=== PATIENT | male | born 1940 | race Caucasian/White ===

== ENCOUNTER 2025-09-16 09:53 | Emergency (ER) | payer OTHER ==
[2025-09-16 11:33] LABS: Absolute Lymphocytes (CBC) 1.4 K/uL (0.7-4.9); Hematocrit 33.2 % (39.6-49.0); Hemoglobin 11.2 g/dL (13.6-17.9); MCH 27.0 pg (27.0-35.0); MCHC 33.6 g/dL (32.0-36.0); MCV 80.2 fL (80-100); MPV 9.7 fL (7.6-11.3); Nucleated RBC Absolute Count 0.0 (0-0); Nucleated Red Blood Cells % 0.0 % (0-0); RBC Red Blood Cell Count 4.15 M/uL (4.33-5.43); White Blood Count 9.50 thou/uL (4.3-10.9)
[2025-09-16 11:52] LABS: ALT/SGPT 248.0 U/L (16-61); AST/SGOT 87.0 U/L (15-37); Albumin 3.2 g/dL (3.4-5.0); Albumin/Globulin Ratio 0.9 (1.1-1.8); Alkaline Phosphatase 141.0 U/L (45-117); Anion Gap 10.4 mEq/L (5.0-15.0); BUN Blood Urea Nitrogen 16.0 mg/dL (7-18); Globulin 3.4 g/dL (2.3-3.5); Glucose Level 120.0 mg/dL (74-106); Potassium 3.4 mEq/L (3.5-5.1); Troponin High Sensitivity 20.3 pg/mL (<58.9)
[2025-09-16 12:17] LABS: Influenza A Ag Negative
[2025-09-16 12:18] LABS: PT Prothrombin Time 20.6 SECONDS (10-13.0); PTT, Activated Partial Thromb 37.8 SECONDS (27.2-37.4); Protime INR 1.86
[2025-09-16 12:18] LABS: Influenza B Ag Negative; SARS-CoV-2 Antigen Rapid Res Negative (Negative)
--- NOTE | 2025-09-16 12:29 | RAD REPORT ---
EXAM: Chest Abdomen Pelvis W Cont CLINICAL INDICATION: Male, 84 years wknes, vomiting;Fever TECHNIQUE: CT chest, abdomen and pelvis was performed, with IV contrast, as per department protocol. Axial, sagittal and coronal reconstructions were obtained. One or more of the following dose reduction techniques were used: Automated exposure control, adjustment of the mA and/or kV according to the patient size, and/or iterative reconstruction. Unless otherwise specified, incidental findings do not require dedicated imaging follow-up. [id number]. COMPARISON: No prior exams FINDINGS: ---THORAX--- LOWER NECK AND CHEST WALL: Visualized thyroid gland and soft tissues are normal. MEDIASTINUM AND LYMPH NODES: No mediastinal mass or fluid collection. Normal size mediastinal, hilar, and axillary lymph nodes. Diffuse esophageal wall thickening. THORACIC AORTA: No thoracic aortic aneurysm. PULMONARY ARTERIES: Enlarged main pulmonary arteries could indicate pulmonary artery hypertension. Un able to evaluate for pulmonary emboli due to either protocol or lack of contrast. HEART: Mild cardiomegaly. Moderate coronary artery calcifications. No significant pericardial effusio n. LUNGS AND AIRWAYS: Small areas of subpleural consolidation in the left lung base. This may reflect at electasis or pneumonitis. No definite pneumonia. Motion artifact limits evaluation for pulmonary nodule detection. PLEURA: Small left pleural effusion. No pneumothorax. ---ABDOMEN/PELVIS--- UPPER GI: No significant abnormality. LIVER: Steatosis and probable cirrhosis. Subcentimeter low-density liver lesions noted which are too small to characterize. GALLBLADDER/BILE DUCTS: Dilated gallbladder with pericholecystic edema? PANCREAS: Atrophy but no acute findings. SPLEEN: Moderate splenomegaly. ADRENALS: No adrenal masses. KIDNEYS AND URETERS: No hydronephrosis.No suspicious renal mass.No renal calculi. 5 mm stone in the l eft distal ureter which is nonobstructing. ABDOMINAL AORTA AND OTHER VESSELS: Moderate atherosclerotic changes without aortic aneurysm. PERITONEUM: No abnormal free fluid. No free air. LYMPH NODES: No pathologic lymphadenopathy. ABDOMINAL WALL: Unremarkable SMALL BOWEL/COLON: Small bowel has normal course and caliber. No colonic wall thickening or pericolon ic inflammatory changes. Appendix absent. Moderate diverticulosis without diverticulitis. URINARY BLADDER: Underdistended but grossly unremarkable. REPRODUCTIVE ORGANS: Prostate brachytherapy seeds. ---COMBINED--- MUSCULOSKELETAL: No acute or suspicious osseous abnormality. Right shoulder arthroplasty. ADDITIONAL FINDINGS: None. IMPRESSION: Distended gallbladder with pericholecystic edema could reflect acute cholecystitis in the appropriate clinical setting. Alternatively, it could be related to underlying liver disease. Hepatic steatosis and probable cirrhosis. Splenomegaly suggesting component of portal hypertension. Mild subpleural airspace disease in the left lower lobe probably atelectasis and/or pneumonitis with trace left effusion. No definite pneumonia.
--- NOTE | 2025-09-16 13:32 | RAD REPORT ---
Abdomen Exam Limited: 09/16/2025 1:11 PM CLINICAL HISTORY: ABD PAIN STUDY: Limited right upper quadrant ultrasound of abdomen. COMPARISON: Same day CT FINDINGS: Liver: Limited evaluation. Hepatic steatosis noted. Bile ducts: No intrahepatic or extrahepatic biliary ductal dilatation. Common bile duct measures 2 mm. Gallbladder: Gallbladder is thickened with wall measuring 6 mm. A combination of small stones and slu dge noted. No sonographic Domínguez sign. IMPRESSION: Gallstones with gallbladder wall thickening but negative sonographic Domínguez sign. This is equivocal f or acute cholecystitis. If persistent clinical concern, could consider HIDA scan to confirm cystic duct patency.
--- NOTE | 2025-09-16 16:35 | RAD REPORT ---
EXAMINATION: MR CHOLANGIOGRAM CLINICAL INDICATION: Abdominal pain TECHNIQUE: Magnetic resonance cholangiopancreatogram was performed. 3D MIP reconstruction done. COMPARISON: September 16, 2025 CT and ultrasound FINDINGS: Gallbladder wall thickened. Filling defects within the posterior aspect of the gallbladder representing a combination of sludge a nd small gallstones. Biliary tree normal caliber. A filling defect within the common bile duct not seen. Pancreatic duct unremarkable. IMPRESSION: Cholelithiasis and gallbladder sludge Gallbladder wall thickening may indicate cholecystitis
--- NOTE | 2025-09-16 16:49 | EDPHYS ---
Physician Documentation [facility] Name: Sherman Arroyo Age: 84 yrs Sex: Male : 1940 Arrival Date: 09/16/2025 Time: 09:53 Bed 14 Private MD: ED Physician Gregory Lai HPI: 09/16 10:58 This 84 yrs old Male presents to ER via Ambulatory with complaints of Flu Symptoms. sb4 10:58 Patient reports fever x 4 days as well as intermittent nausea and vomiting. States that sb4 they had an IV company come to the house and give him fluids 2 days ago and he was feeling better, but his fever has persisted and he has been feeling generally weak. No cough, congestion, abdominal pain. Has had a few had a few episodes of diarrhea. No sick contacts. Historical: - Allergies: 10:04 No Known Allergies; bp - Home Meds: 10:04 Eliquis oral [Active]; losartan oral [Active]; Hydrochlorothiazide Oral [Active]; bp Allopurinol Oral [Active]; Lasix Oral [Active]; Amiodarone Oral [Active]; Colchicine Oral [Active]; - PMHx: 10:04 Hypertensive disorder; Congestive heart failure; bp - Immunization history:: Adult Immunizations up to date. - Infectious Disease History:: Denies. - Social history:: Smoking status: Patient denies any tobacco usage or history of. ROS: 10:58 Cardiovascular: Negative for chest pain, palpitations, and edema, sb4 10:58 Constitutional: Positive for fever, malaise, 10:58 Abdomen/GI: Positive for nausea and vomiting, 10:58 All other systems are negative, Exam: 11:00 Head/Face: Normocephalic, atraumatic. Eyes: Extra-ocular motions intact. Periorbital sb4 areas with no swelling, redness, or edema. Cardiovascular: Regular rate and rhythm with a normal S1 and S2. Respiratory: No increased work of breathing, no retractions or nasal flaring. Abdomen/GI: Soft, non-tender, no distension. Skin: Warm, dry with normal turgor. Normal color with no rashes, no lesions, and no evidence of cellulitis. 11:00 Constitutional: The patient appears alert, awake, uncomfortable, 11:00 ENT: Mouth: Oral mucosa: dry, Vital Signs: 10:13 BP 142 / 63; Pulse 75; Resp 16; Temp 98.7; Pulse Ox 97% ; bp 11:39 BP 134 / 61; Pulse 67; Resp 14; Pulse Ox 97% on R/A; cc6 12:49 BP 130 / 56; Pulse 70; Resp 16; Pulse Ox 97% on R/A; cc6 13:53 BP 147 / 72; Pulse 69; Resp 21; Pulse Ox 98% on R/A; cc6 19:18 BP 136 / 64; Pulse 74; Resp 16; Pulse Ox 98% ; Pain 0/10; kt5 20:23 BP 148 / 67; Pulse 73; Resp 16; Pulse Ox 95% ; Pain 0/10; kt5 21:13 BP 143 / 62; Pulse 76; Resp 18; Temp 98.6; Pulse Ox 99% ; Pain 4/10; kt5 19:18 Pain Scale: Adult kt5 20:23 Pain Scale: Adult kt5 21:13 Pain Scale: Adult kt5 MDM: 09:56 Medical Screening Exam initiated sb4 11:00 Differential diagnosis: viral Infection, bacterial infection, URI, bronchitis, sb4 pneumonia UTI, gastroenteritis. 14:23 Data reviewed: vital signs, nurses notes, lab test result(s), EKG, radiologic studies. sb4 Care significantly affected by the following chronic conditions: Diabetes, Congestive Heart Failure, Obesity, Liver Disease. 16:53 Counseling: I had a detailed discussion with the patient and/or guardian regarding the sb4 historical points, exam findings, and any diagnostic results supporting the discharge/admit diagnosis, the presence of at least one elevated blood pressure reading (>120/80) during this emergency department visit, lab results, radiology results, the need for further work-up and treatment in the hospital. ED course: Patient is requesting transfer to [facility] because that is where his medical team is. I did inform patient that I can attempt transfer but cannot guarantee as we do have the capabilities to take care of of him at this facility. 16:54 Historians other than the Patient: Spouse/Significant Other: . Daughter/Son: son. sb4 19:01 Management of patient was discussed with the following: Hospitalist: Dr. Agrawal, 4 hospitalist at [facility], accepts patient for transfer. Aquarist: General surgeon at [facility], agrees to consult. 09/16 10:24 Order name: Blood Culture Adult (2) sb4 09/16 10:24 Order name: CBC with Diff; Complete Time: 11:34 sb4 09/16 10:24 Order name: CMP; Complete Time: 11:53 sb4 09/16 10:24 Order name: Lactate w/ 2H reflex if indic.; Complete Time: 11:53 sb4 09/16 10:24 Order name: Protime (+inr); Complete Time: 12:18 sb4 09/16 10:24 Order name: Ptt, Activated; Complete Time: 12:18 sb4 09/16 10:24 Order name: Troponin HS; Complete Time: 11:53 sb4 09/16 11:10 Order name: COVID-19 Ag + Flu A+B Ag; Complete Time: 12:18 sb4 09/16 10:24 Order name: CT Chest, Abdomen, Pelvis - W/Contrast; Complete Time: 12:30 sb4 09/16 12:32 Order name: Abdomen Limited US; Complete Time: 13:39 sb4 09/16 14:11 Order name: Cholangiogram; Complete Time: 16:36 EDMS 09/16 10:24 Order name: Accucheck; Complete Time: 12:02 sb4 09/16 10:24 Order name: Cardiac monitoring; Complete Time: 11:18 sb4 09/16 10:24 Order name: EKG - Nurse/Tech; Complete Time: 11:18 sb4 09/16 10:24 Order name: IV Saline Lock - Large Bore; Complete Time: 10:58 sb4 09/16 10:24 Order name: Labs collected and sent; Complete Time: 10:58 sb4 09/16 10:24 Order name: O2 Per Protocol; Complete Time: 10:58 sb4 09/16 10:24 Order name: O2 Sat Monitoring; Complete Time: 10:58 sb4 09/16 10:24 Order name: Vital Signs; Complete Time: 11:18 sb4 EC:16 Rate is 70 beats/min. Rhythm is regular, Sinus Rhythm. AL interval is normal at 193 sb4 msec. QRS interval is normal at 94 msec. QT interval is normal at 406 msec. Clinical impression: NSR w/ Non-specific ST/T Changes. Interpreted by me. Reviewed by me. Administered Medications: 19:17 Drug: Piperacillin-Tazobactam IVPB 3.375 grams IVPB once over 60 mins; (mix in NS 100 kt5 mL) Route: IVPB; Infused Over: 60 mins; Site: right antecubital; 20:39 Follow up: Response: No adverse reaction; IV Status: Completed infusion; IV Intake: kt5 100ml 19:18 Drug: NS IV 0.45 % 1000 ml IV at 75 ml/hr continuous Route: IV; Rate: 75 ml/hr; Site: kt5 right antecubital; Disposition Summary: 09/16/25 16:48 Transfer Ordered Notes: Transfer Location: [facility] sb4 Reason: Higher level of care sb4 Condition: Fair sb4 Problem: new sb4 Symptoms: are unchanged sb4 Accepting Physician: Dr. Agrawal(09/16/25 21:15) kt5 Diagnosis - Acute cholecystitis sb4 Forms: - Medication Reconciliation Form sb4 - SBAR form sb4 Signatures: Dispatcher [employer] EDMS Reji Martin, RN RN Dorcas Alexandre, PA-C PA-C sb4 Dottie Toribio, RN RN kt5 Corrections: (The following items were deleted from the chart) 10:25 10:25 Chest Abdomen Pelvis W Con+CT.RAD.BRZ ordered. EDNC EDNC 16:54 14:23 Care significantly affected by the following chronic conditions: Diabetes, sb4 Hypertension, sb4 17:27 16:48 surg sb4 sb4 21:15 17:27 Dr. Agrawal sb4 kt5
--- NOTE | 2025-09-16 16:49 | ER ---
Nurse's Notes [facility] Name: Sherman Arroyo Age: 84 yrs Sex: Male : 1940 Arrival Date: 09/16/2025 Time: 09:53 Bed 14 Private MD: Diagnosis: Acute cholecystitis Presentation: 09/16 10:13 Chief complaint: Patient states: CHILLS AND N/V SINCE SUNDAY. Coronavirus screen: At bp this time, the client does not indicate any symptoms associated with coronavirus-19. Ebola Screen: No symptoms or risks identified at this time. Initial Sepsis Screen: Does the patient meet any 2 criteria? No. Patient's initial sepsis screen is negative. Does the patient have a suspected source of infection? No. Patient's initial sepsis screen is negative. Risk Assessment: Do you want to hurt yourself or someone else? Patient reports no desire to harm self or others. Onset of symptoms is unknown. 10:13 Method Of Arrival: Ambulatory bp 10:13 Acuity: ELICEO 4 bp Triage Assessment: 10:04 General: Appears in no apparent distress. Behavior is calm, cooperative, appropriate bp for age. Pain: Denies pain. EENT: No deficits noted. Neuro: No deficits noted. Cardiovascular: No deficits noted. Respiratory: No deficits noted. GI: No signs and/or symptoms were reported involving the gastrointestinal system. : No signs and/or symptoms were reported regarding the genitourinary system. Derm: No deficits noted. Musculoskeletal: No deficits noted. Historical: - Allergies: 10:04 No Known Allergies; bp - Home Meds: 10:04 Eliquis oral [Active]; losartan oral [Active]; Hydrochlorothiazide Oral [Active]; bp Allopurinol Oral [Active]; Lasix Oral [Active]; Amiodarone Oral [Active]; Colchicine Oral [Active]; - PMHx: 10:04 Hypertensive disorder; Congestive heart failure; bp - Immunization history:: Adult Immunizations up to date. - Infectious Disease History:: Denies. - Social history:: Smoking status: Patient denies any tobacco usage or history of. Screenin:[facility] ED Fall Risk Assessment (Adult) History of falling in the last 3 months, cc6 including since admission No falls in past 3 months (0 pts) Confusion or Disorientation No (0 pts) Intoxicated or Sedated No (0 pts) Impaired Gait No (0 pts) Mobility Assist Device Used No (0 pt) Altered Elimination No (0 pt) Score/Fall Risk Level 0 - 2 = Low Risk Oriented to surroundings, Maintained a safe environment, Hourly rounding (assess needs \T\ fall precautionary measures) done. Abuse screen: Denies threats or abuse. Denies injuries from another. Nutritional screening: No deficits noted. Tuberculosis screening: No symptoms or risk factors identified. Assessment: 10:34 Reassessment: Patient and/or family updated on plan of care and expected duration. Pain ll1 level reassessed. 10:40 General: Appears in no apparent distress. uncomfortable. Pain: Denies pain. Neuro: cc6 Level of Consciousness is awake, alert, obeys commands, Oriented to person, place, time, situation. Cardiovascular: Capillary refill < 3 seconds Patient's skin is warm and dry. Rhythm is sinus rhythm. Respiratory: Airway is patent Respiratory effort is even, unlabored, Respiratory pattern is regular, symmetrical. GI: No signs and/or symptoms were reported involving the gastrointestinal system. : No signs and/or symptoms were reported regarding the genitourinary system. EENT: No signs and/or symptoms were reported regarding the EENT system. Derm: No signs and/or symptoms reported regarding the dermatologic system. Musculoskeletal: Circulation, motion, and sensation intact. 12:49 Reassessment: Patient and/or family updated on plan of care and expected duration. Pain cc6 level reassessed. Patient is alert, oriented x 3, equal unlabored respirations, skin warm/dry/pink. 13:53 Reassessment: Patient and/or family updated on plan of care and expected duration. Pain cc6 level reassessed. Patient is alert, oriented x 3, equal unlabored respirations, skin warm/dry/pink. 19:09 General: received report from veronica xiong, all questions answered. kt5 19:18 Reassessment: Patient appears in no apparent distress at this time. Patient and/or kt5 family updated on plan of care and expected duration. Pain level reassessed. Patient is alert, oriented x 3, equal unlabored respirations, skin warm/dry/pink. Patient states feeling better. Patient states symptoms have improved. 20:23 Reassessment: Patient appears in no apparent distress at this time. Patient and/or kt5 family updated on plan of care and expected duration. Pain level reassessed. Patient is alert, oriented x 3, equal unlabored respirations, skin warm/dry/pink. Patient states feeling better. Patient states symptoms have improved. 21:03 General: report given to fela xiong at main, all questions answered. kt5 Vital Signs: 10:13 BP 142 / 63; Pulse 75; Resp 16; Temp 98.7; Pulse Ox 97% ; bp 11:39 BP 134 / 61; Pulse 67; Resp 14; Pulse Ox 97% on R/A; cc6 12:49 BP 130 / 56; Pulse 70; Resp 16; Pulse Ox 97% on R/A; cc6 13:53 BP 147 / 72; Pulse 69; Resp 21; Pulse Ox 98% on R/A; cc6 19:18 BP 136 / 64; Pulse 74; Resp 16; Pulse Ox 98% ; Pain 0/10; kt5 20:23 BP 148 / 67; Pulse 73; Resp 16; Pulse Ox 95% ; Pain 0/10; kt5 21:13 BP 143 / 62; Pulse 76; Resp 18; Temp 98.6; Pulse Ox 99% ; Pain 4/10; kt5 19:18 Pain Scale: Adult kt5 20:23 Pain Scale: Adult kt5 21:13 Pain Scale: Adult kt5 ED Course: 09:55 Patient arrived in ED. bd 09:56 Dorcas Bullard PA-C is PHCP. sb4 09:56 Gregory Lai MD is Attending Physician. sb4 10:04 Arm band placed on. bp 10:14 Triage completed. bp 10:34 Patient placed in an exam room, on a stretcher. ll1 10:35 Veronica Tejeda, LOUIE is Primary Nurse. cc6 10:40 Bed in low position. Call light in reach. Side rails up X 1. Provided Education on: use cc6 of call light. 10:58 CBC with Diff Sent. cc6 10:58 CMP Sent. cc6 10:58 Lactate w/ 2H reflex if indic. Sent. cc6 10:59 Troponin HS Sent. cc6 11:18 Blood Culture Adult (2) Sent. cc6 11:18 Protime (+inr) Sent. cc6 11:18 Ptt, Activated Sent. cc6 12:07 CT Chest, Abdomen, Pelvis - W/Contrast In Process Unspecified. EDMS 13:13 Abdomen Limited US In Process Unspecified. EDMS 16:02 Cholangiogram In Process Unspecified. EDMS 17:10 initiated transfer to [facility] for cardiology clearance as requested by pt. bd 20:23 No provider procedures requiring assistance completed. kt5 Administered Medications: 19:17 Drug: Piperacillin-Tazobactam IVPB 3.375 grams IVPB once over 60 mins; (mix in NS 100 kt5 mL) Route: IVPB; Infused Over: 60 mins; Site: right antecubital; 20:39 Follow up: Response: No adverse reaction; IV Status: Completed infusion; IV Intake: kt5 100ml 19:18 Drug: NS IV 0.45 % 1000 ml IV at 75 ml/hr continuous Route: IV; Rate: 75 ml/hr; Site: kt5 right antecubital; Medication: 20:23 VIS not applicable for this client. kt5 Intake: 20:39 IV: 100ml; Total: 100ml. kt5 Outcome: 16:48 ER care complete, transfer ordered by . ursula 21:15 Patient left the ED. kt5 Signatures: Dispatcher [employer] EDMS Nadya Lira Brian, RN RN Zeeshan Alcantara RN RN ll1 Dorcas Bullard PA-C [place]asha sb4 Veronica Tejeda, RN RN cc6 Dottie Toribio, RN RN kt5 Corrections: (The following items were deleted from the chart) 11:20 10:40 Pain: Complains of pain in forehead Pain does not radiate. Pain currently is 6 cc6 out of 10 on a pain scale. cc6 11:21 10:40 General: Appears in no apparent distress. uncomfortable, cc6 cc6 11:21 10:40 Pain: Denies pain. cc6 cc6 11:21 11:19 Neuro: cc6 cc6
[2025-09-16] MEDS ORDERED: NACHLORIDE 0.45% 1,000 ML IV ONE (18:47)
[2025-09-16] MEDS ORDERED: NA CHLORIDE 0.9% 100 ML ONE (18:48)
[2025-09-16] MEDS ORDERED: PIPERACIL/TAZO 3.375 GM VIAL IV ONE (18:48)
[2025-09-17 00:30] VITALS: BP 143/62; TEMP 98.6; O2SAT 99
== END 2025-09-16 21:15 | disposition short-term general hospital (02) ==
LOC: ER 09:53
DX: K81.0 Acute cholecystitis (principal); I10 Essential (primary) hypertension; I50.9 Heart failure, unspecified; R11.2 Nausea with vomiting, unspecified; R53.1 Weakness; Z11.52 Encounter for screening for COVID-19
CPT/HCPCS: 93005; 87040 ×2; 85025; 36415; 85610; 83605; 85730; 84484; 80053; 71260; 74177; 74181; 76705; 87428; Q9967; J2543; 96365; 99284